=== PATIENT | female | born 1960 | race Caucasian/White ===

== ENCOUNTER 2024-04-20 09:39 | Emergency (ER) | payer OTHER, SELFPAY ==
[2024-04-20 09:40] VITALS: BP 117/65; PULSE 96; RESP 14; TEMP 37.2; O2SAT 98; BMI 33.9
--- NOTE | 2024-04-20 09:55 | EX.ED.VIS.UR ---
HPI HPI - URI History of Present Illness Chief Complaint: Sore Throat Informant: patient and spouse/S.O. Narrative Narrative: Patient has had URI symptoms for the last several days including sore throat with odynophagia, cough, runny nose and congestion. She has had some subjective fevers and chills but did not check her temperature. She denies earache, tinnitus, roaring but woke up this morning with vertiginous symptoms with nausea and an episode of vomiting upon getting out of bed. Those symptoms have been intermittent, she notes that she is getting them repeatedly with movement/position changes. She denies any lateralizing neurologic symptoms or loss of consciousness. She does not have a headache. Denies any vision changes. Multiple family members with whom the patient has had contact have had URI symptoms or vomiting/diarrhea in the past 2 weeks. ROS ROS ED Constitutional Constitutional ED: Reports chills, fever(s) and subjective Eyes Eyes: Denies blurry vision, change in vision or diplopia ENT ENT ED: Reports nasal congestion, rhinorrhea and sore throat; Denies ear pain Cardiovascular Cardiovascular: Denies chest pain or palpitations Respiratory/Chest Respiratory/Chest: Reports cough; Denies chest congestion, dyspnea or sputum Gastrointestinal Gastrointestinal: Denies abdominal pain, diarrhea, nausea or vomiting Genitourinary Genitourinary ED: Denies dysuria or hematuria Musculoskeletal Musculoskeletal: Denies myalgias or neck pain Integumentary Denies abscess or rash Neurologic Neurologic: Reports vertigo; Denies headache(s), paresthesias, seizure-like activity, syncope or weakness Psychiatric Psychiatric: Denies depression or suicidal thoughts Endocrine Endocrinology: Denies polydipsia or polyuria PFSH PFSH Medical History no medical history no medical history Home Medications ?Medication ?Instructions ?Recorded ?Last Taken ?Type meclizine 25 mg tablet 25 mg PO Q8H PRN PRN Dizziness #20 04/20/24 Unknown Rx tabs Allergy/AdvReac Type Severity Reaction Status Date / Time No Known Allergies Allergy Verified 04/20/24 09:40 Family History no significant family his Surgical History (Updated 04/20/24 @ 10:05 by Luna Silva) H/O heart surgery Social History (Updated 04/20/24 @ 10:06 by Luna Silva) household members: spouse housing: house Smoking Status: Never smoker EXAM Physical Exam Const Vital Signs: 04/20/24 09:40 04/20/24 11:40 Temperature 98.9 F Temperature Source Temporal Pulse Rate 96 81 Respiratory Rate 14 14 Blood Pressure 117/65 99/67 Blood Pressure Mean 82 77 Pulse Ox 98 96 Oxygen Delivery Method Room Air Room Air Positive well nourished and well developed General Appearance ED: well developed and NAD HEENT Reports moist mucous membranes HEENT Narrative: TMs and EACs normal bilaterally. No mastoid tenderness or swelling or erythema. normocephalic and atraumatic Face and Sinus: Negative for sinus tenderness Throat: Negative for tonsils abnormal or posterior oropharynx abnormal Eyes PERRL and EOMs intact bilaterally Eyes Narrative: No nystagmus. Neck no lymphadenopathy, supple and no meningeal signs Resp normal respiratory effort and clear to auscultation bilaterally Cardio no murmurs Rate: regular rate Rhythm: regular rhythm GI non-tender and non-distended Auscultation: normoactive bowel sounds Extremity normal to inspection and full ROM Neuro oriented x3, CN's II-XII intact bilaterally and no sensory deficits noted Neuro Narrative: Positive [place] with brief horizontal nystagmus to the right Sensorium / Orientation: alert Motor Exam: strength 5/5 throughout Psych mental status grossly normal Skin Lesions: no lesions Rashes: no rashes MDM MDM MDM Narrative Medical decision making narrative: Patient is vital signs including blood pressure and pulse oximetry are normal. Her symptoms are consistent with peripheral vertigo in relation to what is most likely a viral URI, especially given close contact with multiple family members similar symptoms recently. She has not been tested for COVID/influenza so I am doing that in addition to a strep test to rule that out, and giving her some meclizine and Zofran at this time. COVID/influenza/RSV test is negative. Rapid strep also negative. At this time I think most likely viral etiology, she is given a dose of Decadron here for her throat symptoms as well as prescription for meclizine which she was given here and helped her vertiginous symptoms. I do not think a chest x-ray is indicated, she has no dyspnea, clear lungs, and normal vital signs and oxygenation. We discussed reasons to return otherwise I would recommend supportive care for what is likely viral and outpatient follow-up if she does not have improvement within the next week. She is comfortable with that plan. Discharge Plan Triage Chief Complaint: Sore Throat ED Provider: Shane Lomas Dx/Rx/DC Orders Clinical Impression: Viral URI, Peripheral vertigo Instructions: Vertigo Inner Ear Problems, ED URI, Viral, No Abx (Adult) Prescriptions: New meclizine 25 mg tablet 25 mg PO Q8H PRN PRN (Reason: Dizziness) Qty: 20 0RF Primary Care Provider: Reed Pope Referrals: Alvino Perez MD [Non-Staff] - 1 Week if not improving Print Language: Croatian Disposition Disposition: Home, Self Care
[2024-04-20] MEDS: Meclizine HCl 25 MG Tablet PO (09:59)
[2024-04-20] MEDS: Ondansetron ODT 4 MG Tablet 8 MG PO (10:04)
[2024-04-20 11:40] VITALS: BP 99/67; PULSE 81; RESP 14; O2SAT 96
[2024-04-20 13:00] VITALS: PULSE 80; RESP 18; O2SAT 98
[2024-04-20] MEDS: dexAMETHasone 4 MG Tablet 8 MG PO (13:21)
[2024-04-20 13:24] VITALS: BP 108/57; PULSE 74; RESP 18; TEMP 36.6; O2SAT 99
== END 2024-04-20 13:26 | disposition home or self-care (01) ==
PROVIDERS: Emergency Provider Emergency Medicine; PCP Family Medicine; Visit Provider Emergency Medicine
DX: J06.9 Acute upper respiratory infection, unspecified (principal); R42 Dizziness and giddiness
CPT/HCPCS: 87631; 87651; 99283; A4216